=== PATIENT | female | born 1960 | race Caucasian/White ===

== ENCOUNTER 2018-12-08 07:56 | Outpatient (CLI) | payer OTHER ==
[2018-12-08] MEDS ORDERED: GADOBUTROL 10 MMOL/10 ML VIAL ONE (08:06)
[2018-12-08] MEDS: GADOBUTROL 10 MMOL/10 ML VIAL IVP ONE (08:31)
[2018-12-08] MEDS ORDERED: GADOBUTROL 10 MMOL/10 ML VIAL IVP ONE (08:31)
--- NOTE | 2018-12-08 09:50 | MRI Report ---
Reason: MULTIPLE SCLEROSIS Procedure Date: 12/08/2018 Accession Number: [id number] / [id number] Procedure: MRI - Brain W/WO CPT Code: FULL RESULT: EXAM: MRI BRAIN WITHOUT AND WITH CONTRAST EXAM DATE: 12/08/2018 09:00 AM. CLINICAL HISTORY: Multiple SCLEROSIS. COMPARISON: None. TECHNIQUE: Multiplanar, multisequence T1-weighted and fluid-sensitive MR sequences of the brain were performed. Sequences optimized for white matter evaluation. Other: None. IV Contrast: 8 mL Gadavist. FINDINGS: Brain Volume: Normal for age. Parenchyma: No acute hemorrhage, mass, or infarct. Multiple nodular and plaque-like bilateral cerebral white matter T2 hyperintense lesions. Many of these are in the deep and subcortical white matter. Multiple plaque-like periventricular T2 hyperintensities are also present. Many of the scattered deep and subcortical T2 hyperintense nodules are on the order of 1-3 mm in diameter. The largest left posterior temporal lobe lesion at the margin of the left lateral ventricular atrium measures 7 x 14 mm. There is another dominant 6 x 10 mm T2 hyperintensity in the left frontoparietal deep white matter pointing toward the adjacent ventricle. There is a 7 mm periventricular T2 hyperintensity adjacent to the right frontal horn. No definite evidence for focal plaque-like posterior fossa T2 hyperintensity. Amorphous increased signal in the brady is more likely a combination of imaging artifact and minimal chronic microangiopathy. No abnormal white matter enhancement to suggest active inflammation. Ventricles/Cisterns: No hydrocephalus. No abnormal extra-axial fluid collection or hemorrhage. Orbits: Symmetric and unremarkable. Sella Turcica: No space-occupying lesion. IAC: Symmetric and unremarkable. Vasculature: Normal signal flow void is seen in the major arterial structures at the skull base. Sinuses: Mild to moderate multifocal paranasal sinus mucosal thickening, especially right maxillary and bilateral sphenoid. No air-fluid level however. Grossly clear mastoids. Bones: No focal pathologic appearing marrow signal changes. Other: None. IMPRESSION: 1. Multifocal supratentorial white matter disease without enhancement but in a pattern consistent with demyelinating disease. 2. No acute stroke, hemorrhage or enhancing mass. 3. Sinusitis. RADIA
== END 2018-12-08 07:57 | disposition home or self-care (01) ==
LOC: DI 07:56
PROVIDERS: ATTEND Physician Assistant
DX: G35 Multiple sclerosis (principal); J32.9 Chronic sinusitis, unspecified
CPT/HCPCS: 70553; A9585

== ENCOUNTER 2023-03-29 07:25 | Outpatient (CLI) | payer OTHER ==
--- NOTE | 2023-03-31 09:42 | MRI Report ---
PROCEDURE: BRAIN WO INDICATIONS: MS TECHNIQUE: Noncontrast axial T1 spin echo, axial T2 fast spin echo, sagittal and axial FLAIR, coronal T2 fast sp in echo, axial gradient echo, axial diffusion and ADC through the brain. COMPARISON: MRI brain 12/08/2017 FINDINGS: Image quality: Excellent. CSF Spaces: Basal cisterns are patent. No extra-axial fluid collections. Ventricles are normal in size and shape. Brain: No intracranial masses or hemorrhage. Bob/white matter interface is normal. Previously iden tified scattered periventricular and subcortical white matter foci are unchanged and the largest angle ins in the left posterior temporal lobe measuring approximately 6 x 15 mm. Brainstem appears normal. Diffusion-weighted images demonstrate no acute ischemic insult. No chronic ischemic insults. Silke l intravascular flow voids are present. Skull and face: Calvarium has normal marrow signal. Orbits appear normal. Sinuses: Sinuses demonstrate minimal pansinus mucosal thickening. No fluid levels. IMPRESSION: Stable appearance of periventricular and subcortical white matter hyperintensities consistent with kn own history of multiple sclerosis. Overall appearance is stable. No lesions demonstrate restricted di ffusion. Reviewed by: Lori Shetty MD on 03/31/2023 9:40 AM PDT Approved by: Lori Shetty MD on 03/31/2023 9:40 AM PDT Station ID: [id number]
== END 2023-03-29 07:26 | disposition home or self-care (01) ==
LOC: DI 07:25
PROVIDERS: ATTEND Psychiatry & Neurology Neurology
DX: G35 Multiple sclerosis (principal); G25.81 Restless legs syndrome
CPT/HCPCS: 36415; 80053; 85025

== ENCOUNTER 2023-03-29 07:27 | Outpatient (CLI) | payer OTHER ==
[2023-03-29 07:48] LABS: BASOPHILS % (AUTO) 0.5 %; EOSINOPHILS # (AUTO) 0.3 10^3/uL (0.0-0.7); EOSINOPHILS % (AUTO) 4.4 %; HCT - HEMATOCRIT 37.6 % (37.0-47.0); HGB - HEMOGLOBIN 12.7 g/dL (12.0-16.0); LYMPHOCYTES # (AUTO) 1.8 10^3/uL (1.5-3.5); LYMPHOCYTES % (AUTO) 28.9 %; MEAN CORPUSCULAR HEMOGLOBIN 29.7 pg (27.0-31.0); MEAN CORPUSCULAR HGB CONC 33.8 g/dL (32.0-36.0); MEAN CORPUSCULAR VOLUME 88.1 fL (81.0-99.0); MEAN PLATELET VOLUME 9.5 fL (7.9-10.8); MONOCYTES # (AUTO) 0.4 10^3/uL (0.0-1.0); MONOCYTES % (AUTO) 6.6 %; NEUTROPHILS # (AUTO) 3.6 10^3/uL (1.5-6.6); NEUTROPHILS % (AUTO) 59.1 %; PLT - PLATELET COUNT 192 10^3/uL (130-450); RED BLOOD COUNT 4.27 10^6/uL (4.20-5.40); RED CELL DISTRIBUTION WIDTH 12.7 % (12.0-15.0); WHITE BLOOD COUNT 6.1 x10^3/uL (4.8-10.8)
[2023-03-29 08:05] LABS: ALBUMIN 3.9 g/dL (3.2-5.5); ALBUMIN/GLOBULIN RATIO 1.2 (1.0-2.2); BILIRUBIN,TOTAL 0.6 mg/dL (0.2-1.0); CALCIUM 8.8 mg/dL (8.5-10.3); CREATININE 0.7 mg/dL (0.4-1.0); POTASSIUM 4.1 mmol/L (3.5-5.0); TOTAL PROTEIN 7.1 g/dL (6.7-8.2)
== END 2023-03-29 07:28 | disposition home or self-care (01) ==
LOC: LAB 07:27
PROVIDERS: ATTEND Psychiatry & Neurology Neurology
DX: G35 Multiple sclerosis (principal); G25.81 Restless legs syndrome
CPT/HCPCS: 36415; 80053; 85025